=== PATIENT | male | born 1965 | race Caucasian/White ===

== ENCOUNTER 2024-10-08 03:45 | Emergency (ER) | payer BC ==
[~2024-10-08] VITALS: Ht 182.9 cm; Wt 124.7 kg
--- NOTE | 2024-10-08 03:50 | NUR ---
COVID AND FLU SWABS COLLECTED AND GIVEN TO PRIMARY NURSE.
--- NOTE | 2024-10-08 04:41 | ERN ---
General Chief Complaint: Cough Stated Complaint: COUGH, BODYACHES Time Seen by MD: 04:03 History of Present Illness Initial Comments 58-year-old male, history of significant cardiovascular disease including CABG, presents for cough congestion and fever for less than 24 hours. Patient reports he developed cough yesterday, since then he has developed fever body aches and productive sputum. Mild sore throat. No vomiting or diarrhea. P.o. tolerant. No respiratory distress. Allergies: Coded Allergies: No Known Allergies (Unverified Allergy, Unknown, 10/08/24) Home Meds Active Scripts Azithromycin (Azithromycin) 250 Mg Tablet, 1 TAB PO AD for 5 Days, #6 TAB 0 Refills 2 the first day followed by 1 for days 2-5 Prov:RENATEROSAURA Sarah QUINONEZ 10/08/24 Past Medical History Past Medical History: Diabetes-Type II, Hypertension Past Surgical History: Appendectomy, Tonsillectomy, CABG ROS Dictation CONSTITUTIONAL: Fever. HEAD/FACE: No signs of trauma. EENT: No eye pain, no blurred vision, no tearing, no double vision, no ear pain, no ear discharge, no nose pain, no nasal congestion, no throat pain, no throat swelling, no mouth pain. RESPIRATORY: Cough congestion CARDIOVASCULAR: No chest pain, no edema, no palpitations, no syncope. GASTROINTESTINAL/ABDOMINAL: No abdominal pain, no constipation, no diarrhea, no nausea, no vomiting. GENITOURINARY: No abnormal discharge, no dysuria, no frequent urination, no h ematuria. No complaints of pain in the genitals. MUSCULOSKELETAL: No back pain, no gout, no joint pain, no joint swelling, no muscle pain, no muscle stiffness, no neck pain. INTEGUMENTARY: No change in color, no change in hair/nails, no dryness, no les ion, no lumps, no rash. NEUROLOGICAL/PSYCH: No anxiety, not depressed, no emotional problem, no headache, no numbness, no pre-existing deficit, no history of seizures, no tremors, no weakness. HEMATOLOGIC/LYMPHATIC: Not anemic, no history of blood clots, no apparent bleeding, no bruising, glands not swollen. All Systems Negative, Except as Noted. Physical Exam Physical Exam Dictation VITAL SIGNS: Reviewed. GENERAL APPEARANCE: Alert, oriented x3, no acute distress, obese. HEAD AND FACE: Non-traumatic. EYES: PERRL, pink conjunctivas, eyelid no trauma, anterior chamber clear. EARS: Pinnas intact and no signs of trauma or erythema. Ear canals clear and no discharge. TMs no erythema. NOSE: No discharge, no bleeding. OROPHARYNX: Mouth normal, teeth no caries, tongue pink. Pharynx clear, no erythema. Tonsils no exudates, no abscesses noted. Mucous membrane moist. NECK: Supple, non-tender, no thyromegaly, no masses, no JVD, no bruits. BREAST: Deferred. CHEST: No tenderness, no crepitus, no paradoxical movement, no retractions. LUNGS: Rhonchus breath sounds HEART: Regular rate, regular rhythm, no murmur, no gallops. VASCULAR: No peripheral edema. ABDOMEN: Soft, positive bowel sounds, nondistended, no guarding, nontender, no rebound, no masses no hepatomegaly, no splenomegaly, no Hennessy's sign, no hernias. RECTAL: Deferred. GENITAL: Deferred. NEUROLOGICAL: Normal speech, gross motor function intact, gross sensory function intact. MUSCULOSKELETAL: Neck nontender, full range of motion, back nontender, full range of motion. EXTREMITIES: Nontender, full range of motion. SKIN: Color pink, dry, no turgor, no rash, no lacerations, no abrasions, no contusions. LYMPHATICS: Deferred. Results Laboratory and Microbiology Lab and Micro Result Laboratory Tests Test 10/08/24 03:48 Influenza Type A Antigen Negative For Type A Influenza Type B Antigen Negative For Type B SARS-CoV-2 Antigen (Rapid) PRESUMPTIVE NEGATIVE MDM CC: Fever, productive cough, congestion Historian: Patient Comorbidities: Diabetes, CABG, hypertension Limitations by social determinants of health: None Differential diagnosis: Viral URI, pneumonia, sepsis, other Vital signs: Stable, remained stable in the ER Lung sounds shows some congestion no accessory muscle use no wheezing. Flu SARS negative Chest x-ray independently interpreted by me shows some mild vascular congestion otherwise unremarkable. Symptoms most consistent with a community-acquired pneumonia due to the productive cough and fever. We will treat with a azithromycin, cough medication, recommend PCP follow up. Patient agrees ED Course Orders Procedure Category Date Status Time Covid19 (Sars Antigen LAB 10/08/24 Complete Rapid) 04:04 Influenza Type A & B, LAB 10/08/24 Complete Rapid 04:04 Chest 1vw RAD 10/08/24 Taken 04:04 Vital Signs Date Time Temp Pulse Resp B/P (MAP) Pulse Ox O2 Delivery O2 Flow Rate FiO2 10/08/24 04:04 99.0 97 20 173/87 96 Room Air* 0 21 10/08/24 03:46 99.0 99 20 130/93 98 Room Air DX & DISP Disposition: Discharge Departure Impression: Primary Impression: Community acquired pneumonia Condition: Stable Scripts Azithromycin (Azithromycin) 250 Mg Tablet 1 TAB PO AD for 5 Days, #6 TAB 0 Refills 2 the first day followed by 1 for days 2-5 Prov: ROSAURA DEWITT DO 10/08/24 Additional Instructions: Your symptoms are consistent with community-acquired pneumonia. Your vital signs are stable. Your oxygen level is normal. I have prescribed azithromycin, which is an antibiotic. Please take as prescribed. You can use [id number] cough and cold medications as needed. Please return to the emergency department if you have any concerning symptoms. Referrals: SELF,REFERRAL (PCP) ORSAURA DEWITT DO October 08, 2024 04:41
[2024-10-08] MEDS ORDERED: AZIT250T9 PO (04:43)
[2024-10-08 05:04] LABS: COVID19 (SARS ANTIGEN RAPID) PRESUMPTIVE NEGATIVE (NEGATIVE); INFLUENZA TYPE A Negative For Type A (NEGATIVE); INFLUENZA TYPE B Negative For Type B (NEGATIVE)
[2024-10-08 05:14] VITALS: BP 155/79; PULSE 85; RESP 20; TEMP 98.9; O2SAT 96
--- NOTE | 2024-10-08 07:33 | HMCIMG ---
CHEST 1VW HISTORY: Cough COMPARISON: None FINDINGS: A frontal projection of the chest was obtained. No acute pulmonary infiltrates is seen. Poststernotomy changes are seen. The heart is enlarged. Degenerative changes of the thoracolumbar spine are present. Prominent interstitial markings are seen. No evidence of aortic calcification is seen. IMPRESSION: 1. No acute pulmonary infiltrate is seen.
== END 2024-10-08 05:15 | disposition home or self-care (01) ==
LOC: EDH 03:45
DX: J18.9 Pneumonia, unspecified organism (principal); E11.9 Type 2 diabetes mellitus without complications; I10 Essential (primary) hypertension; I25.10 Atherosclerotic heart disease of native coronary artery without angina pectoris; Z20.822 Contact with and (suspected) exposure to COVID-19; Z90.49 Acquired absence of other specified parts of digestive tract; Z90.89 Acquired absence of other organs; Z95.1 Presence of aortocoronary bypass graft
CPT/HCPCS: 71045; 87426; 87804; 99283